=== PATIENT | male | born 1995 | race Caucasian/White ===

== ENCOUNTER 2021-09-23 21:44 | Emergency (ER) | payer OTHER ==
[~2021-09-23] VITALS: Ht 185.4 cm; Wt 204.1 kg
[2021-09-23 22:06] VITALS: BP 158/99
--- NOTE | 2021-09-23 23:21 | NUR ---
PT TAKEN TO BED 5
--- NOTE | 2021-09-23 23:35 | NUR ---
PT BIB SELF FOR INTERMITTENT ABDOMINAL PAIN AND CONSTIPATION FOR 8 DAYS. PT STATES RECTAL BLEEDING TODAY WHEN HE TRIED TO USE RESTROOM TODAY. PT TOOK MIRALAX, ENEMA, AND A LAXATIVE OVER SEVERAL DAYS. PT STATES THIS IS THE FIRST TIME HE EVER FELT CONSTIPATED LIKE THIS. PT DENIES PAIN MED USE. PT STATES APPETITE IS LOW X 2 DAYS DUE TO CONSTIPATION. PT DENIES CHEST PAIN/N/SOB/ COUGH. PMH: PT HAD RT LEG SURGEY IN 2011 WITH METAL RODS AND PINS. SOCIAL HX: SMOKES CIGARETTES, OBESITY
[2021-09-24] MEDS ORDERED: GLYPS RC (00:08)
[2021-09-24 00:15] VITALS: BP 142/88
--- NOTE | 2021-09-24 00:15 | NUR ---
Patient discharged with v/s stable. Written and verbal after care instructions given and explained. Patient alert, oriented and verbalized understanding of instructions. Ambulatory with steady gait. All questions addressed prior to discharge. ID band removed. Patient advised to follow up with PMD. Rx of GLYCERIN SUPPOSITORY given. Opportunity to ask questions provided and answered.
--- NOTE | 2021-09-24 00:20 | NUR ---
The patient's care was reviewed and supervised by Lillie Ag RN, RN.
== END 2021-09-24 00:15 | disposition home or self-care (01) ==
LOC: MED 21:44
DX: K59.00 Constipation, unspecified (principal); I10 Essential (primary) hypertension; I25.10 Atherosclerotic heart disease of native coronary artery without angina pectoris; N18.9 Chronic kidney disease, unspecified; F17.200 Nicotine dependence, unspecified, uncomplicated; Z72.89 Other problems related to lifestyle
CPT/HCPCS: 99282